=== PATIENT | male | born 1995 | race Caucasian/White ===

== ENCOUNTER 2017-02-04 21:21 | Emergency (ER) | payer OTHER ==
[~2017-02-04] VITALS: Ht 172.7 cm; Wt 86.2 kg
[2017-02-04 21:27] VITALS: BP_SYST 131
[2017-02-04] MEDS ORDERED: KETOROLAC TROMETHAMINE 60 MG/2 ML VIAL IM ONE (22:00)
[2017-02-05 00:08] VITALS: BP_SYST 120
== END 2017-02-05 00:08 | disposition home or self-care (01) ==
LOC: SED 21:21
DX: R10.31 Right lower quadrant pain (principal); R11.0 Nausea
CPT/HCPCS: 74000; 74176; 96372; 99284; J1885